=== PATIENT | female | born 1980 | race Two or more races ===

== ENCOUNTER 2025-04-21 02:19 | Emergency (ER) | payer BC ==
[~2025-04-21] VITALS: Ht 157.5 cm; Wt 64.4 kg
[2025-04-21] MEDS ORDERED: 0.9 % SODIUM CHLORIDE 1,000 ML IV STA (03:18)
[2025-04-21] MEDS ORDERED: PROMETHAZINE HCL 50 MG/ML AMPUL IM STA (03:19)
[2025-04-21] MEDS ORDERED: FAMOtidine 10 MG/ML (4ML VIAL) IV PUSH STA (03:19)
[2025-04-21] MEDS ORDERED: ONDANSETRON HCL 2 MG/ML VIAL IV STA (03:19)
[2025-04-21] MEDS ORDERED: KETOROLAC TROMETHAMINE 30 MG VIAL IV STA (03:20)
[2025-04-21] MEDS ORDERED: HYOSCYAMINE SULFATE 0.125 MG TAB.SUBL SL ONE (03:30)
[2025-04-21 04:47] LABS: BASO % 0.2 % (0.1-1.2); EOS # 0.00 (0.04-0.54); EOS % 0.0 % (0.7-7.0); LYMPH # 1.12 (1.18-3.74); LYMPH % 10.6 % (19.3-53.1); MEAN PLATELET VOLUME 9.40 fl (9.4-12.4); MONO # 0.48 (0.24-0.82); MONO % 4.5 % (4.7-12.5); NEUT # 8.93 (1.56-6.13); NEUT % 84.3 % (34.0-71.1); RED CELL DISTRIBUTION WIDTH 15.5 % (11.6-14.4)
[2025-04-21 05:20] LABS: GLUCOSE FASTING 141.0 mg/dL (65-100)
[2025-04-21 05:21] LABS: AST/SGOT 29.0 U/L (15-37); BILIRUBIN TOTAL 0.51 mg/dL (0.3-1.2); BUN CREA RATIO 11.0 (7.0-25.0); CREATININE SERUM 0.84 mg/dL (0.55-1.02); GFR 73.32; GLOBULINA 4.7 G/DL (2.4-3.5); OSMOLALITY SERUM 284.0 MOSM/KG (275-295)
[2025-04-21 05:22] LABS: ALT/SGPT 27.0 U/L (12-78)
== END 2025-04-21 07:37 | disposition home or self-care (01) ==
LOC: ER 02:19
DX: K29.70 Gastritis, unspecified, without bleeding (principal); R11.10 Vomiting, unspecified